=== PATIENT | female | born 2005 | race Caucasian/White ===

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

== ENCOUNTER → 2025-02-26 | Outpatient (CLI) | payer OTHER | END | disposition home or self-care (01) | LOC: CARD 00:52 | PROVIDERS: ATTEND Family Medicine | DX: R07.89 Other chest pain (principal) ==

== ENCOUNTER 2025-03-07 09:39 | Emergency (ER) | payer OTHER ==
[~2025-03-07] VITALS: Ht 165.1 cm; Wt 80.7 kg
[2025-03-07] MEDS ORDERED: diphenhydrAMINE hydrochloride 50 MG/ML VIAL IV ONE (10:25)
[2025-03-07] MEDS ORDERED: SODIUM CHLORIDE 0.9% 1,000 ML IV ONE (10:25)
[2025-03-07] MEDS ORDERED: EPINEPHrine Hydrochloride 1 MG/ML AMP IM ONE (10:25)
[2025-03-07] MEDS ORDERED: FAMOTIDINE 50 ML IV ONE (10:25)
[2025-03-07 10:38] LABS: BASO # 0.0 10*3/uL (0.0-0.1); BASO % 0.1 % (0.0-1.0); EOS # 0.1 10*3/uL (0.0-0.4); EOS % 1.5 % (1.0-4.0); MEAN CELL VOLUME 86.9 fl (81.0-99.0); MEAN CORPUSCULAR HGB 29.3 pg (27.0-31.0); MEAN PLATELET VOLUME 10.3 fl (9.6-12.3); MONO # 0.4 10*3/uL (0.1-1.0); MONO % 4.7 % (3.0-9.0); NEUT # 6.3 10*3/uL (2.3-7.9); NEUT % 78.8 % (47.0-73.0); NUCLEATED RED BLOOD CELL 0.0 % (0.0-0.0); NUCLEATED RED BLOOD CELL 0.0 10*3/uL (0.0-0.0); PLATELET COUNT AUTOMATED 219 10*3/uL (130-400); RED CELL DISTRI WIDTH 12.5 % (0-14.5)
[2025-03-07 10:58] LABS: BUN 14 mg/dl (9-23)
[2025-03-07] MEDS ORDERED: Water, Sterile 10 ML VIAL ONE (11:24)
[2025-03-07] MEDS ORDERED: EPIPEN 2-P0.3 MG/0.3 IJ (11:57)
== END 2025-03-07 12:23 | disposition home or self-care (01) ==
LOC: ED 09:39
PROVIDERS: Emergency Medicine
DX: T78.2XXA Anaphylactic shock, unspecified, initial encounter (principal); Z79.899 Other long term (current) drug therapy; X58.XXXA Exposure to other specified factors, initial encounter; Y93.89 Activity, other specified; Y92.89 Other specified places as the place of occurrence of the external cause; Y99.8 Other external cause status

== ENCOUNTER → 2025-03-12 | Outpatient (CLI) | payer OTHER ==
[~2025-03-12] MED LIST changes: +EPIPEN 2-P0.3 MG/0.3 IJ
[2025-03-12 08:51] LABS: BUN 13 mg/dl (9-23); SGPT/ALT 81 U/L (5-49)
== END | disposition home or self-care (01) ==
LOC: LAB 08:05
PROVIDERS: ATTEND Nurse Practitioner Women's Health
DX: R74.8 Abnormal levels of other serum enzymes (principal); L68.0 Hirsutism; R53.83 Other fatigue; R63.5 Abnormal weight gain

== ENCOUNTER → 2025-03-26 | Outpatient (CLI) | payer OTHER | END | disposition home or self-care (01) | LOC: US 01:31 | PROVIDERS: ATTEND Nurse Practitioner Women's Health | DX: N83.292 Other ovarian cyst, left side (principal); N83.291 Other ovarian cyst, right side; R10.20 Pelvic and perineal pain unspecified side; Z97.5 Presence of (intrauterine) contraceptive device ==

== ENCOUNTER → 2025-05-02 | Outpatient (CLI) | payer OTHER ==
[2025-05-02 13:13] LABS: BASO # 0.0 10*3/uL (0.0-0.1); BASO % 0.3 % (0.0-1.0); EOS # 0.3 10*3/uL (0.0-0.4); EOS % 3.4 % (1.0-4.0); MEAN CELL VOLUME 88.9 fl (81.0-99.0); MEAN CORPUSCULAR HGB 29.7 pg (27.0-31.0); MEAN PLATELET VOLUME 10.1 fl (9.6-12.3); MONO # 0.5 10*3/uL (0.1-1.0); MONO % 6.0 % (3.0-9.0); NEUT # 5.0 10*3/uL (2.3-7.9); NEUT % 65.9 % (47.0-73.0); NUCLEATED RED BLOOD CELL 0.0 % (0.0-0.0); NUCLEATED RED BLOOD CELL 0.0 10*3/uL (0.0-0.0); PLATELET COUNT AUTOMATED 234 10*3/uL (130-400); RED CELL DISTRI WIDTH 12.4 % (0-14.5)
[2025-05-02 13:35] LABS: BUN 13 mg/dl (9-23); SGPT/ALT 113 U/L (5-49)
== END | disposition home or self-care (01) ==
LOC: LAB 01:05
PROVIDERS: Nurse Practitioner; ATTEND Nurse Practitioner Family
DX: L70.0 Acne vulgaris (principal)